=== PATIENT | female | born 1955 | race African-American/Black ===

== ENCOUNTER 2018-04-21 07:24 | Day surgery (SDC) | payer MEDICARE, MEDICAID ==
[~2018-04-21] VITALS: Ht 168.9 cm; Wt 72.6 kg
[~2018-04-21 07:24] MED LIST: ASPI-1159 MT; BUSP10TA3 PO; FISH PO; HYDR-4009 MT; HYDR25TA MT; LACTATED RINGERS 1,000 ML IV SCH; LOSA100T14 MT
[2018-04-21] MEDS ORDERED: NORMAL SALINE 0.9% 10 ML SYR ONE (08:03)
[2018-04-21] MEDS ORDERED: BUPIVACAINE HCL/PF 0.5% (5MG/ML) 10ML ONE (08:03)
[2018-04-21] MEDS ORDERED: BACITRACIN 50,000 UNITS/VIAL ONE (08:04)
[2018-04-21] MEDS ORDERED: CEFAZOLIN SODIUM 1000MG/VIAL ONE (08:53)
[2018-04-21] MEDS ORDERED: DEXAMETHASONE 4MG/ML 1ML VIAL ONE (08:54)
[2018-04-21] MEDS ORDERED: LIDOCAINE HCL/PF 1% 10 MG/ML 5ML VIAL ONE ×2 (08:54→12:03)
[2018-04-21] MEDS ORDERED: METOCLOPRAMIDE HCL 10MG/2ML VIAL ONE (08:54)
[2018-04-21] MEDS ORDERED: ONDANSETRON HCL 4MG/2ML INJ ONE (08:54)
[2018-04-21] MEDS ORDERED: MIDAZOLAM HCL 2 MG/2 ML VIAL ONE (08:54)
[2018-04-21] MEDS ORDERED: KETOROLAC 30MG/ML VIAL ONE (08:54)
[2018-04-21] MEDS ORDERED: PROPOFOL 200MG/20ML VIAL IV ONE (08:55)
[2018-04-21] MEDS ORDERED: FENTANYL CITRATE/PF 50MCG/ML 2ML VIAL ONE ×2 (08:55→10:05)
[2018-04-21] MEDS ORDERED: SODIUM CHLORIDE 0.9% 10ML VIAL ONE (08:57)
[2018-04-21 09:11] LABS: CLARITY URINE TURBID (CLEAR); COLOR URINE YELLOW (YELLOW); KETONES URINE NEGATIVE (NEGATIVE); LEUKOCYTE ESTERASE URINE TRACE (NEGATIVE); NITRITE URINE NEGATIVE (NEGATIVE); OCCULT BLOOD URINE NEGATIVE (NEGATIVE); PH URINE 7.5 (4.5-8.0); PROTEIN URINE NEGATIVE (NEGATIVE); SPECIFIC GRAVITY URINE 1.019 (1.005-1.030); UROBILINOGEN URINE 0.2 E.U./dL (0.2-1.0)
[2018-04-21] MEDS ORDERED: EPHEDRINE SULFATE 50MG/ML VIAL ONE (11:58)
[2018-04-21] MEDS ORDERED: KETOROLAC 30MG/ML VIAL IV NR (12:00)
[2018-04-21] MEDS ORDERED: HYDROCODONE/ACETAMINOPHEN 10/325MG TABLET PO PRN (12:00)
[2018-04-21] MEDS ORDERED: ONDANSETRON HCL 4MG/2ML INJ IV PRN (12:15)
[2018-04-21] MEDS ORDERED: MEPERIDINE HCL/PF 25MG/ML CPJ IV PRN (12:15)
== END 2018-04-21 13:30 | disposition home or self-care (01) ==
LOC: OR 07:24
PROVIDERS: ATTEND Orthopaedic Surgery
DX: S62.625P Displaced fracture of middle phalanx of left ring finger, subsequent encounter for fracture with malunion (principal); I10 Essential (primary) hypertension; Z79.82 Long term (current) use of aspirin; Z79.899 Other long term (current) drug therapy; Z91.040 Latex allergy status; Z88.8 Allergy status to other drugs, medicaments and biological substances; X58.XXXD Exposure to other specified factors, subsequent encounter
CPT/HCPCS: 26735; 73140; 81003; A4216; J0690; J1100; J1885; J2250; J2405; J2765; J3010; J3490; J2704